=== PATIENT | male | born 1970 | race Caucasian/White ===

== ENCOUNTER → 2021-01-29 | Outpatient (CLI) | payer BC | END | disposition home or self-care (01) | LOC: RAD 15:17 | PROVIDERS: ATTEND Nurse Practitioner Family | DX: R05 Cough (principal) ==

== ENCOUNTER → 2024-04-14 | Outpatient (CLI) | payer OTHER | END | disposition home or self-care (01) | LOC: MRI 09:34 | PROVIDERS: ATTEND Nurse Practitioner | DX: M47.812 Spondylosis without myelopathy or radiculopathy, cervical region (principal); M48.02 Spinal stenosis, cervical region; M50.222 Other cervical disc displacement at C5-C6 level; M50.21 Other cervical disc displacement, high cervical region; M50.223 Other cervical disc displacement at C6-C7 level ==

== ENCOUNTER → 2024-12-23 | Outpatient (CLI) | payer BC, OTHER | END | disposition home or self-care (01) | LOC: RAD 12:12 | PROVIDERS: ATTEND Nurse Practitioner | DX: M19.011 Primary osteoarthritis, right shoulder (principal); M25.711 Osteophyte, right shoulder; M25.811 Other specified joint disorders, right shoulder; M25.511 Pain in right shoulder ==